=== PATIENT | female | born 1985 | race Caucasian/White ===

== ENCOUNTER → 2022-01-31 | Day surgery (SDC) | payer OTHER ==
[~2022-01-31] MED LIST: ACETAMINOPHEN500 MG PO; BUPRENORPHIN-N1 EACH SL; IBUPROFEN600 MG PO
[2022-01-31 11:06] LABS: RED BLOOD COUNT 4.07 M/UL (4.00-5.10); WHITE BLOOD COUNT 8.7 K/UL (4.5-11.0)
== END | disposition home or self-care (01) ==
LOC: OR 10:32
PROVIDERS: Obstetrics & Gynecology
DX: O02.1 Missed abortion (principal); F32.A Depression, unspecified; F19.20 Other psychoactive substance dependence, uncomplicated; F17.210 Nicotine dependence, cigarettes, uncomplicated
CPT/HCPCS: 85025; J1100; J1885; J2001; J2250; J2405; J2704; J2795; J3010; J7030; J7120